=== PATIENT | male | born 1960 | race African-American/Black ===

== ENCOUNTER 2016-09-11 00:32 | Emergency (ER) | payer BC ==
[~2016-09-11] VITALS: Ht 182.9 cm; Wt 95.3 kg
[2016-09-11] MEDS ORDERED: BACTRIM,SEPT1 TABLET PO (02:04)
[2016-09-11] MEDS ORDERED: NORCO 5/3251 TABLET PO (02:04)
[2016-09-11] MEDS ORDERED: KEFLEX500 MG PO (02:04)
[2016-09-11 02:35] VITALS: BP 175/95
== END 2016-09-11 02:36 | disposition home or self-care (01) ==
LOC: EME 00:32
DX: L03.113 Cellulitis of right upper limb (principal)
CPT/HCPCS: 99281; 99284

== ENCOUNTER → 2017-11-14 | Outpatient (CLI) | payer BC ==
[~2017-11-14] MED LIST: BACTRIM,SEPT1 TABLET PO; KEFLEX500 MG PO; NORCO 5/3251 TABLET PO
== END | disposition home or self-care (01) ==
LOC: CDC 12:17
DX: Z01.810 Encounter for preprocedural cardiovascular examination (principal); R94.31 Abnormal electrocardiogram [ECG] [EKG]
CPT/HCPCS: 93000